=== PATIENT | female | born 1995 | race Caucasian/White ===

== ENCOUNTER 2022-01-28 12:45 | Outpatient (CLI) | payer BC, SELFPAY ==
[2022-01-28 13:51] LABS: Basophils Percent Auto 0.3 % (0.2-1.2); Eosinophils Absolute Auto 0.1 K/mm3 (0-0.3); Eosinophils Percent Auto 1.2 % (0-4.4); Hematocrit 31.7 % (37.0-47.0); Hemoglobin 10.8 g/dL (12.0-15.0); Immature Granulocyte Absolute 0.08 K/mm3 (0.00-0.031); Immature Granulocyte Percent A 0.7 % (0-0.5); Lymphocytes Absolute Auto 1.56 K/mm3 (0.9-3.2); Lymphocytes Percent Auto 14.1 % (18.3-44.2); Mean Corpuscular HGB Conc 34.1 g/dl (32-36); Mean Corpuscular Hemoglobin 33.1 pg (26-34); Mean Corpuscular Volume 97.2 fl (80-100); Mean Platelet Volume 8.3 fl (7.4-10.4); Monocytes Absolute Auto 1.1 K/mm3 (0.1-0.6); Monocytes Percent Auto 9.7 % (2.6-8.5); Neutrophils Absolute Auto 8.2 K/mm3 (1.3-6.7); Platelet Count Result 278 k/mm3 (150-375); Red Blood Count 3.26 M/mm3 (4.2-5.4); Red Cell Distribution Width 12.1 % (11.5-14.5); White Blood Count 11.1 K/mm3 (4.5-10.0)
[2022-01-28 14:45] LABS: HIV 1/2 Ab P24 Ag Result Negative (Negative)
[2022-01-28 14:49] LABS: Hepatitis B Surface Antigen Negative (Negative)
[2022-01-28 17:06] LABS: Rapid Plasma Reagin Non-Reactive (NonReactive)
[2022-01-31 10:01] LABS: CMV IgG Antibody <0.60 U/mL (<0.60)
[2022-02-02 00:45] LABS: Hematocrit 33.1 % (35.0-45.0); MCH 32.7 pg (27.0-33.0); MCV 98.5 fL (80.0-100.0); RDW 11.6 % (11.0-15.0); Red Blood Cell Count 3.36 Mill/uL (3.80-5.10)
== END 2022-01-28 12:46 | disposition home or self-care (01) ==
PROVIDERS: Visit Provider Obstetrics & Gynecology
DX: N94.89 Other specified conditions associated with female genital organs and menstrual cycle (principal)
CPT/HCPCS: 36415; 83021; 84702; 85025; 86592; 86644; 86703; 86747; 86762; 86787; 86850; 86900; 86901; 87086; 87340; G0432

== ENCOUNTER 2022-04-02 10:31 | Outpatient (CLI) | payer BC, SELFPAY ==
[2022-04-02 12:52] LABS: Basophils Percent Auto 0.3 % (0.2-1.2); Eosinophils Absolute Auto 0.1 K/mm3 (0-0.3); Eosinophils Percent Auto 1.2 % (0-4.4); Hemoglobin 10.2 g/dL (12.0-15.0); Immature Granulocyte Absolute 0.14 K/mm3 (0.00-0.031); Immature Granulocyte Percent A 1.2 % (0-0.5); Lymphocytes Absolute Auto 1.29 K/mm3 (0.9-3.2); Lymphocytes Percent Auto 11.5 % (18.3-44.2); Mean Corpuscular HGB Conc 31.9 g/dl (32-36); Mean Corpuscular Hemoglobin 31.8 pg (26-34); Mean Corpuscular Volume 99.7 fl (80-100); Mean Platelet Volume 8.6 fl (7.4-10.4); Monocytes Absolute Auto 0.8 K/mm3 (0.1-0.6); Monocytes Percent Auto 7.2 % (2.6-8.5); Neutrophils Absolute Auto 8.9 K/mm3 (1.3-6.7); Neutrophils Percent Auto 78.6 % (45.5-73.1); Platelet Count Result 295 k/mm3 (150-375); Red Blood Count 3.21 M/mm3 (4.2-5.4); Red Cell Distribution Width 12.6 % (11.5-14.5); White Blood Count 11.3 K/mm3 (4.5-10.0)
[2022-04-02 13:06] LABS: Glucose 149 mg/dL (65-110)
[2022-04-02 13:46] LABS: HIV 1/2 Ab P24 Ag Result Negative (Negative)
== END 2022-04-02 10:32 | disposition home or self-care (01) ==
PROVIDERS: Visit Provider Obstetrics & Gynecology
DX: Z34.90 Encounter for supervision of normal pregnancy, unspecified, unspecified trimester (principal); Z3A.00 Weeks of gestation of pregnancy not specified
CPT/HCPCS: 36415; 82947; 85025; 86703; G0432

== ENCOUNTER 2022-04-16 09:29 | Outpatient (CLI) | payer BC, SELFPAY ==
[2022-04-16 10:49] LABS: Glucose Fasting 91 mg/dL
== END 2022-04-16 09:30 | disposition home or self-care (01) ==
PROVIDERS: Visit Provider Student in an Organized Health Care Education/Training Program
DX: Z34.90 Encounter for supervision of normal pregnancy, unspecified, unspecified trimester (principal)
CPT/HCPCS: 36415; 82951; 82952

== ENCOUNTER 2022-04-21 12:33 | Outpatient (CLI) | payer BC, SELFPAY ==
[2022-04-21 13:03] LABS: Glucose Fasting 88 mg/dL
[2022-04-21 15:14] LABS: Glucose 1 Hour 140 mg/dL
[2022-04-21 16:04] LABS: Glucose 2 Hour 137 mg/dL
[2022-04-21 17:24] LABS: Glucose 3 Hour 118 mg/dL
== END 2022-04-21 12:34 | disposition home or self-care (01) ==
LOC: ANHLAB 12:34
PROVIDERS: Visit Provider Obstetrics & Gynecology
DX: R73.09 Other abnormal glucose (principal)
CPT/HCPCS: 36415; 82951; 82952

== ENCOUNTER 2022-06-23 06:10 | Inpatient (IN) | payer BC, SELFPAY ==
[2022-06-23] VITALS (220 sets, daily range): BP systolic 98–141; BP diastolic 48–90; PULSE 34–151; RESP 20; TEMP 36.6–37.6; O2SAT 98–100; BMI 26.6
[2022-06-23] MEDS: LACTATED RINGERS 1,000 ML 125 ML IV CONT ×4 (07:35→18:12)
--- NOTE | 2022-06-23 07:35 | LDADM ---
This patient, Maria Ines Vann, was admitted to Labor/Delivery/Recovery 104 on 06/23/22 at 06:10. Plans for labor, pain management and were discussed with patient. Patient/family oriented to hospital policies and general routines including ID bracelet, bed and alarms, visiting hours, pain management, procedures, bathroom and other care routines, personal items, smoking policy, room service/diet and guest tray routines, security routines, and visiting hours. Patient/Family are encouraged to report perceived risks to care and to ask questions if they do not understand what they are told or what they should do. See OBIX for further documentation.
[2022-06-23 07:49] LABS: Basophils Percent Auto 0.2 % (0.2-1.2); Eosinophils Absolute Auto 0.1 K/mm3 (0-0.3); Eosinophils Percent Auto 1.1 % (0-4.4); Hematocrit 31.8 % (37.0-47.0); Immature Granulocyte Absolute 0.07 K/mm3 (0.00-0.031); Immature Granulocyte Percent A 0.6 % (0-0.5); Lymphocytes Absolute Auto 1.57 K/mm3 (0.9-3.2); Lymphocytes Percent Auto 13.4 % (18.3-44.2); Mean Corpuscular HGB Conc 31.4 g/dl (32-36); Mean Corpuscular Hemoglobin 29.2 pg (26-34); Mean Platelet Volume 8.1 fl (7.4-10.4); Monocytes Absolute Auto 1.3 K/mm3 (0.1-0.6); Monocytes Percent Auto 11.2 % (2.6-8.5); Neutrophils Absolute Auto 8.6 K/mm3 (1.3-6.7); Neutrophils Percent Auto 73.5 % (45.5-73.1); Platelet Count Result 344 k/mm3 (150-375); Red Blood Count 3.42 M/mm3 (4.2-5.4); Red Cell Distribution Width 14.7 % (11.5-14.5); White Blood Count 11.7 K/mm3 (4.5-10.0)
--- NOTE | 2022-06-23 08:39 | WPDANESEPP ---
Anes - Eval Pre Procedure Procedure: Labor epidural Date/Time: 06/23/22 08:39 Surgeon: Nhung Preop Diagnosis: Pain during labor Pre Op Diagnosis: Contractions Patient Data Age: 27 Gender: F Height: 1.45 m Weight: 56 kg Last Vital Signs Temp 36.8 C 06/23/22 08:00 Pulse 80 06/23/22 08:31 BP 128/74 06/23/22 08:31 O2 Del Method Room Air 06/23/22 07:35 Allergies Allergy/AdvReac Type Severity Reaction Status Date / Time No Known Allergies Allergy Verified 06/22/22 14:54 Home Medications Medication Instructions Recorded Confirmed Type prenat.vits,inderjit,tna-rixd-pylte 1 tablet PO DAILY 02/23/22 06/23/22 History ferrous sulfate 325 mg (65 mg 325 mg PO DAILY 05/04/22 06/23/22 History iron) tablet Laboratory Tests 06/23/22 06/23/22 06/23/22 07:42 07:42 07:42 WBC 11.7 K/mm3 H K/mm3 (4.5-10.0) RBC 3.42 M/mm3 L M/mm3 (4.2-5.4) Hgb 10.0 g/dL L g/dL (12.0-15.0) Hct 31.8 % L % (37.0-47.0) MCV 93.0 fl fl (80-100) MCH 29.2 pg pg (26-34) MCHC 31.4 g/dl L g/dl (32-36) RDW 14.7 % H % (11.5-14.5) Plt Count 344 k/mm3 k/mm3 (150-375) MPV 8.1 fl fl (7.4-10.4) Immature Gran % (Auto) 0.6 % H % (0-0.5) Neut % (Auto) 73.5 % H % (45.5-73.1) Lymph % (Auto) 13.4 % L % (18.3-44.2) Yancey % (Auto) 11.2 % H % (2.6-8.5) Eos % (Auto) 1.1 % % (0-4.4) Baso % (Auto) 0.2 % % (0.2-1.2) Lymph # (Auto) 1.57 K/mm3 K/mm3 (0.9-3.2) Yancey # (Auto) 1.3 K/mm3 H K/mm3 (0.1-0.6) Eos # (Auto) 0.1 K/mm3 K/mm3 (0-0.3) Baso # (Auto) 0.0 K/mm3 K/mm3 (0.0-0.1) Abs Immat Gran (auto) 0.07 K/mm3 H K/mm3 (0.00-0.031) Absolute Neuts (auto) 8.6 K/mm3 H K/mm3 (1.3-6.7) Absolute Nucleated RBC 0.0 K/mm3 K/mm3 (0.0-0.012) Nucleated RBC % 0.0 % % (0.0-0.2) RPR Pending Blood Type O Positive Antibody Screen Negative Patient hx anesthesia problems: none Family hx anesthesia problems: none Results Review: All pre-operative results and documents have been reviewed as part of the pre-operative evaluation. [facility] Past Medical History Medical History Asthma HSV-2 (herpes simplex virus 2) infection Suppression of menses Family History Family History Mother Diabetes mellitus Father Diabetes mellitus Grandparent Diabetes mellitus Hypertension Grandparent Diabetes mellitus Hypertension Malignant neoplasm of prostate Grandparent Lung cancer Social History Social History Smoking status: Never smoker Second hand tobacco smoke exposure: No Alcohol intake: never Substance use: never Substance use type: does not use Lack of Transportation: No Lack of Food: Never True Current Housing: I Have Housing Concerned About Future Housing: No Difficulty Paying Gas/Electric Bills: No Difficulty Paying for Meds: No Currently Unemployed: No Education: Bachelor's Degree Difficulty w/ Childcare or Family Care: No Living arrangements: with family Additional living arrangements comments: [facility] Occupation/Education: occupation Additional occupation/education comments: [employer] Gender identity (if verbalized by the patient): Female Sexual Orientation (if Verbalized by the Patient): Straight or Heterosexual Spiritual care concerns: No Exam Day of Procedure 06/23/22 08:39 Patient weight: normal Neurological: alert and oriented
[2022-06-23] MEDS: OXYTOCIN 30 UNITS/NS 500 ML 30 UNITS/500 ML BAG IV CONT (11:40)
--- NOTE | 2022-06-23 11:54 | WPDHPUPDATE1 ---
History and Physical Update Update Date/Time: 06/23/22 11:54 27 yo at 40w1d who presents with complaint of contractions. During evaluation she was noted to have decelerations on FHT. History and Physical has been reviewed, including an updated exam of the patient. There are NO changes in the patient's condition. Risks, benefits, and alternatives have been discussed and questions answered. Patient agrees to proceed with procedure. A/P: admit to L&D routine admission orders Rh+ GBS neg expectant management continuous EFM plan for AROM and pitocin augmentation as indicated
--- NOTE | 2022-06-23 11:57 | PM.OBPNLAB ---
Pain Control Date/time seen: 06/23/22 11:57 Pain control: epidural Comments: Pt comfortable in bed Pelvic Exam Dilation (cm): 4 Effacement (%): 80 station: -1 Amniotic membrane status: Intact Comments: AROM for clear fluid Contractions Monitor mode: External Status status: Category ll Assessment and Plan Plan: continuous present management Comments: heart tracing has showed recurrent late decelerations. Most recently, heart tones were reassuring. heart tracing was just allowed for Pitocin augmentation. Discuss heart tracing with patient father of baby at length. Discussed that the things are stable at this time, if heart tracing pattern continues, would have concerns for continuing current management. The given remote status from delivery. A ROM for clear fluid. IUPC placed. Continue to monitor status. Will progress with augmentation at this time. Risks, alternatives, benefits of discussed at length.
[2022-06-23] MEDS: SODIUM CHLORIDE 0.9% IV 300 ML 600 ML I-UTERINE (12:44)
[2022-06-23 15:09] LABS: Rapid Plasma Reagin Non-Reactive (NonReactive)
[2022-06-23] MEDS: DEXTROSE 5%/LACTATED RINGERS 500 ML 100 ML IV CONT (17:05)
--- NOTE | 2022-06-23 19:06 | PM.OBPRVD ---
OB - Delivery Note Procedure Procedure: Patient pushed for a spontaneous vaginal delivery. The fetus was delivered atraumatically and placed on the maternal abdomen. The cord was clamped and cut after 1 minute of life. The cord was double clamped and cut and a segment of cord was collected for cord gases. Cord blood was collected for blood type and Coomb's testing. The placenta delivered spontaneously and was noted to be intact. The perineum was inspected and there was a 2nd degree perineal laceration. A periurethral laceration was also noted. The lacerations were repaired with 3-0 vicryl in the usual fashion. The uterus was firm and good hemostasis was noted. The patient and fetus were stable in the delivery room. Intrapartal Events: Non-Reassuring Status Induction method: None Delivery augmentation: Rupture of Membranes and Pitocin Delivery monitor: External FHT Route of delivery: Episiotomy description: None Laceration Description: Periurethral and Perineal - 2nd Degree Delivery repair: vicryl Specimen: Yes (placenta) Quantitative Blood Loss (ml): 250 Anesthesia type: Epidural Disposition: Floor () Complications: No immediate complications [place] Baby Date of : 06/23/22 Time of : 18:44 Weeks of gestation at delivery: 40 Infant gender: Female Weight (pounds): 6 Weight (ounces): 12 presentation: vertex position: Left Occiput Anterior Placenta delivery description: Spontaneous and Other (placental calcifications noted) Cord Vessel Description: 3 Vessels score one minute: 8 score five minutes: 9 AMG Delivery Billing Delivery Delivery: Delivery Charge
[2022-06-23] MEDS: OXYTOCIN 30 UNITS/NS 500 ML 30 UNITS/500 ML BAG 125 UNITS IV CONT (19:21)
[2022-06-23] MEDS: BENZOCAINE 20% AER SPR (*SP) 56 GM CAN 1 SPRAY TOPICAL (20:24)
[2022-06-23] MEDS: WITCH HAZEL 40 PADS 1 PAD TOPICAL (20:25)
--- NOTE | 2022-06-23 21:54 | PC.NURSE ---
Patient transferred to post room #291 per wheelchair from labor and delivery. Support person present. Oriented to unit, room, information board, rooming in, admission packet and security measures. Patient verbalizes understanding.
[2022-06-23] MEDS: IBUPROFEN 600 MG TABLET PO (22:27)
[2022-06-24 04:15] VITALS: BP 120/60; PULSE 86; RESP 16; TEMP 36.8
[2022-06-24 04:36] LABS: Hematocrit 27.7 % (37.0-47.0); Hemoglobin 8.5 g/dL (12.0-15.0)
--- NOTE | 2022-06-24 07:18 | WPDANLDPN2 ---
Anes-Prog Note L&D Date/Time: 06/24/22 07:18 Comfortable throughout: labor and delivery Neuraxial method: epidural Epidural/Spinal procedure site: clean & non-tender Neuro status: Neuro function grossly intact. Cardiovascular status: normal Respiratory status: normal Airway patency: baseline Mental status: baseline Post-Op hydration status: normal Vital Signs: Last Vital Signs Temp 36.8 C 06/24/22 04:15 Pulse 86 06/24/22 04:15 Resp 16 06/24/22 04:15 BP 120/60 06/24/22 04:15 Pulse Ox 99 06/23/22 21:20 O2 Del Method Room Air 06/23/22 07:35 Pain score (VAS): 2 I/O: Intake & Output 06/23/22 06/23/22 06/24/22 15:59 23:59 07:59 Intake Total 2000 3000 Output Total 100 Balance 1999 2900 Post-procedural complaints: none Patient feedback: Patient satisfied with anesthetic care.
[2022-06-24] MEDS: IBUPROFEN 600 MG TABLET PO ×3 (08:12→22:24)
[2022-06-24] MEDS: DOCUSATE SODIUM 100 MG CAPSULE PO ×2 (08:13→16:40)
[2022-06-24] MEDS: POLYSACCHARIDE IRON COMPLEX 150 MG CAPSULE PO ×2 (08:13→16:40)
[2022-06-24 09:15] VITALS: BP 119/50; PULSE 84; RESP 16; TEMP 37.3; O2SAT 100
[2022-06-24 12:15] VITALS: BP 119/68; PULSE 91; RESP 16; TEMP 37.1; O2SAT 100
[2022-06-24 16:30] VITALS: BP 124/61; PULSE 83; RESP 16; TEMP 37.2; O2SAT 100
[2022-06-24] MEDS: ACETAMINOPHEN 325 MG TABLET 650 MG PO ×2 (16:38→22:25)
[2022-06-24 20:00] VITALS: BP 118/68; PULSE 86; RESP 16; TEMP 37; O2SAT 100
[2022-06-25] MEDS: POLYSACCHARIDE IRON COMPLEX 150 MG CAPSULE PO (07:26)
[2022-06-25] MEDS: IBUPROFEN 600 MG TABLET PO (07:26)
[2022-06-25 07:30] VITALS: BP 131/70; PULSE 74; RESP 16; TEMP 36.8; O2SAT 100
--- NOTE | 2022-06-25 07:49 | PM.OBDSVD ---
DS: Admitting Diagnosis Discharge Date 06/25/22 Admitting Diagnosis intrauterine at term OB - DS: Summary OB Procedures : None OB Procedures Intrapartum: Spontaneous Vag Delivery OB Procedures: : None Status at Discharge Functional status at discharge: independent ambulation Overall status at discharge: patient is back to baseline Time Spent with Patient Time attestation: Total time spent providing and/or coordinating discharge services: Time spent: Less than 30 minutes Exam Const: General: comfortable and no acute distress Resp: Effort & Inspection: normal respiratory effort Auscultation: clear to auscultation bilaterally Cardio: Rate: regular rate GI: GI Palp: Yes Soft to palpation Auscultation: normal bowel sounds Other: Fundus firm below umbilicus Psych: Appearance: grossly normal Mental Status: mental status grossly normal Affect: normal affect DS: Data Data Completed and Pending Pending studies at discharge: Pending at discharge 06/23/22 18:49 Surgical [PTH] Routine Discharge Plan Discharge Discharging Clinician: Shaheed Steven Patient Disposition: Home, Self-Care Activity: as tolerated and pelvic rest Diet: regular Patient Instructions: Antibiotic Form, Vaginal Delivery (DC) Stand Alone Forms: General Discharge Information Follow-up/Referrals: Alexys Hooker MD [Physician] - Discharge Medications: New acetaminophen 500 mg tablet 500 mg PO Q6H PRN (Reason: pain) Qty: 30 0RF ibuprofen 600 mg tablet 600 mg PO Q6H PRN (Reason: pain) Qty: 30 0RF Continued prenat.vits,inderjit,avh-qryt-myztw Tablet 1 tablet PO DAILY ferrous sulfate 325 mg (65 mg iron) tablet 325 mg PO DAILY Date of admission: 06/23/22 06:10 Primary Care Provider: PHYSICIAN,BIBLIOGRAPHIC SERVICES SPECIALIST Admitting Provider: Alexys Hooker Attending physician on admission: Alexys Hooker Condition: Stable
[2022-06-25] MEDS: TETANUS,DIPHTHERIA,AC PERTUSSIS ADULT (0.5 ML) BOOSTRIX IM (10:00)
[2022-06-25] MEDS: WITCH HAZEL 40 PADS 1 PAD TOPICAL (10:02)
[2022-06-25] MEDS: BENZOCAINE 20% AER SPR (*SP) 56 GM CAN 1 SPRAY TOPICAL (10:02)
[2022-06-27 07:50] VITALS: BP 123/64; PULSE 78; RESP 16; TEMP 37.3; O2SAT 100
== END 2022-06-25 10:30 | disposition home or self-care (01) | DRG 807 ==
LOC: ANHLDR 06:56 → ANHOB2 21:57
PROVIDERS: Admitting Provider Student in an Organized Health Care Education/Training Program; Visit Provider Obstetrics & Gynecology
DX: O77.0 Labor and delivery complicated by meconium in amniotic fluid (principal); Z37.0 Single live birth; O70.1 Second degree perineal laceration during delivery; O71.82 Other specified trauma to perineum and vulva; Z3A.40 40 weeks gestation of pregnancy
CPT/HCPCS: 36415; 85014; 85018; 85025; 86592; 86850; 86900; 86901; 88307; 90715; A9270; J2590; J2795; J7030; J7120; J7121

== ENCOUNTER 2023-03-18 21:54 | Emergency (ER) | payer OTHER, SELFPAY ==
--- NOTE | ~2023-03-18 | XR_ITS ---
EXAMINATION: XR ankle RT min 3V DATE: 03/18/2023 22:55 INDICATION: Right ankle pain. TECHNIQUE: 4 views of right ankle were obtained. COMPARISON: None. FINDINGS: Bone alignment is normal. No fracture. There is a small osteochondral lesion of lateral nury ar dome. There is ankle soft tissue swelling. IMPRESSION: 1. Small subchondral lesion of lateral talar dome. Reviewed, dictated and finalized at location A. [employer]
[2023-03-18 22:01] VITALS: BP 135/92; PULSE 63; RESP 19; TEMP 36.3; O2SAT 100
== END 2023-03-19 02:30 | disposition left against medical advice (07) ==
PROVIDERS: Emergency Provider Emergency Medicine
DX: M25.571 Pain in right ankle and joints of right foot (principal)
CPT/HCPCS: 73610; 99199

== ENCOUNTER 2023-03-19 13:29 | Emergency (ER) | payer OTHER, SELFPAY ==
[2023-03-19 13:31] VITALS: BP 104/45; PULSE 84; RESP 18; TEMP 36.4; O2SAT 97
--- NOTE | 2023-03-19 16:01 | PC.NURSE ---
patient left stating, I can't wait any longer, I have places to be
== END 2023-03-19 16:04 | disposition left against medical advice (07) ==
LOC: ANHED 15:44
PROVIDERS: Emergency Provider Emergency Medicine
DX: M25.571 Pain in right ankle and joints of right foot (principal)
CPT/HCPCS: 99199